=== PATIENT | female | born 1945 | race Caucasian/White ===

== ENCOUNTER 2017-04-26 14:48 | Outpatient (CLI) | payer MEDICARE ==
--- NOTE | 2017-04-27 18:31 | Mammography Report ---
DIGITAL SCREENING MAMMOGRAM: 04/26/2017 CLINICAL INDICATION: A 71-year-old with history of late childbearing for screening, history of benig n biopsy. COMPARISON: 07/2013, 04/2008, 10/2005, 09/2005. TECHNIQUE: Routine CC and MLO projections were obtained of the breasts. FINDINGS: The breasts again demonstrate scattered fibroglandular densities bilaterally. No suspicio us masses, clustered microcalcifications, or regions of architectural distortion are identified. Pos tbiopsy changes are stable. IMPRESSION: BENIGN FINDINGS. RECOMMENDATION: Routine annual screening unless otherwise clinically indicated. BI-RADS category 2, benign findings. STANDARD QUALIFYING STATEMENTS 1. This examination was reviewed with the aid of Computer-Aided Detection (CAD). 2. A negative or benign imaging report should not delay biopsy if clinically suspicious findings are present. Consider surgical consultation if warranted. More than 5% of cancers are not identified by i maging. 3. Dense breasts may obscure an underlying neoplasm. JOB #: [id number] EXT JOB #:[id number]
== END 2017-04-26 14:49 | disposition home or self-care (01) ==
LOC: DI 14:48
PROVIDERS: ATTEND Internal Medicine
DX: Z12.31 Encounter for screening mammogram for malignant neoplasm of breast (principal)
CPT/HCPCS: 77067

== ENCOUNTER 2018-01-02 12:14 | Outpatient (CLI) | payer MEDICARE ==
--- NOTE | 2018-01-02 13:50 | XRAY Report ---
THREE VIEW LEFT FOOT: 01/02/2018 CLINICAL INDICATION: Pain distal second metatarsal. FINDINGS: AP, lateral, oblique views of the left foot demonstrate no evidence of fracture or dislocation. The joint spaces are preserved. No radiopaque foreign body is appreciated in the soft tissues. IMPRESSION: NORMAL LEFT FOOT. TD: 01/02/2018 13:46
== END 2018-01-02 12:15 | disposition home or self-care (01) ==
LOC: DI 12:14
PROVIDERS: ATTEND Physician Assistant
DX: M79.672 Pain in left foot (principal)

== ENCOUNTER 2018-01-25 08:13 | Outpatient (CLI) | payer MEDICARE ==
[2018-01-25 12:52] LABS: BASOPHILS % (AUTO) 0.9 %; EOSINOPHILS # (AUTO) 0.2 10^3/uL (0.0-0.7); EOSINOPHILS % (AUTO) 4.1 %; HGB - HEMOGLOBIN 11.9 g/dL (12.0-16.0); LYMPHOCYTES # (AUTO) 1.7 10^3/uL (1.5-3.5); LYMPHOCYTES % (AUTO) 38.4 %; MEAN CORPUSCULAR HEMOGLOBIN 29.4 pg (27.0-31.0); MEAN CORPUSCULAR HGB CONC 32.8 g/dL (32.0-36.0); MEAN CORPUSCULAR VOLUME 89.6 fL (81.0-99.0); MEAN PLATELET VOLUME 8.5 fL (7.9-10.8); MONOCYTES # (AUTO) 0.3 10^3/uL (0.0-1.0); MONOCYTES % (AUTO) 7.2 %; NEUTROPHILS # (AUTO) 2.2 10^3/uL (1.5-6.6); NEUTROPHILS % (AUTO) 49.4 %; PLT - PLATELET COUNT 267 10^3/uL (130-450); RED BLOOD COUNT 4.06 10^6/uL (4.20-5.40); RED CELL DISTRIBUTION WIDTH 13.8 % (12.0-15.0); WHITE BLOOD COUNT 4.5 x10^3/uL (4.8-10.8)
[2018-01-25 13:21] LABS: ALBUMIN 3.6 g/dL (3.2-5.5); ALKALINE PHOSPHATASE 68 IU/L (42-121); ALT ALANINE AMINOTRANSFERASE 20 IU/L (10-60); AST ASPARTATE AMINOTRANSFERASE 23 IU/L (10-42); BILIRUBIN,TOTAL 0.4 mg/dL (0.2-1.0); BUN - BLOOD UREA NITROGEN 9 mg/dL (6-20); CALCIUM 8.8 mg/dL (8.5-10.3); CARBON DIOXIDE - CO2 28 mmol/L (21-32); CHLORIDE 104 mmol/L (101-111); CHOL/HDL RATIO 4.3 (<4.4); CHOLESTEROL 201 mg/dL; CREATININE 0.8 mg/dL (0.4-1.0); GFR - MDRD 70 (>89); GLUCOSE 96 mg/dL (70-100); HDL CHOLESTEROL 47 mg/dL; LDL CHOLESTEROL,CALCULATED 114 mg/dL; LDL/HDL RATIO 2.4 (<4.4); SODIUM 137 mmol/L (135-145); TOTAL PROTEIN 7.3 g/dL (6.7-8.2); VLDL CHOLESTEROL 40 mg/dL
== END 2018-01-25 08:14 | disposition home or self-care (01) ==
LOC: LAB.WCP 08:13
PROVIDERS: ATTEND Physician Assistant
DX: E66.9 Obesity, unspecified (principal); Z79.899 Other long term (current) drug therapy; E55.9 Vitamin D deficiency, unspecified; R53.83 Other fatigue
CPT/HCPCS: 36415; 80053; 80061; 82306; 83721; 84443; 85025

== ENCOUNTER 2018-02-17 11:45 | Outpatient (CLI) | payer MEDICARE ==
[2018-02-17 19:07] LABS: % IRON SATURATION 21 % (20-50); BUN - BLOOD UREA NITROGEN 14 mg/dL (6-20); CALCIUM 9.1 mg/dL (8.5-10.3); CARBON DIOXIDE - CO2 26 mmol/L (21-32); CHLORIDE 98 mmol/L (101-111); CREATININE 0.7 mg/dL (0.4-1.0); GFR - MDRD 82 (>89); GLUCOSE 89 mg/dL (70-100); IRON 84 ug/dL (28-170); SODIUM 134 mmol/L (135-145); TOTAL IRON BINDING CAPACITY 396 ug/dL (250-450); TRANSFERRIN 283 mg/dL (192-382)
[2018-02-17 19:23] LABS: FOLATE 12.27 ng/mL (5.90 - >24.8)
[2018-02-17 19:33] LABS: CRP - C-REACTIVE PROTEIN < 1.0 mg/dL (0-1.0)
[2018-02-20 19:31] LABS: ANA SCREEN POSITIVE (NEGATIVE)
== END 2018-02-17 11:46 | disposition home or self-care (01) ==
LOC: LAB.WCP 11:45
PROVIDERS: ATTEND Physician Assistant
DX: M35.1 Other overlap syndromes (principal); Z79.899 Other long term (current) drug therapy; E53.8 Deficiency of other specified B group vitamins; R53.83 Other fatigue
CPT/HCPCS: 36415; 80048; 81599; 82607; 82746; 83540; 84466; 85651; 86038; 86140

== ENCOUNTER 2018-03-17 14:44 | Outpatient (CLI) | payer MEDICARE | END 2018-03-17 14:45 | disposition home or self-care (01) | LOC: RT 14:44 | PROVIDERS: ATTEND Physician Assistant | DX: R07.89 Other chest pain (principal) | CPT/HCPCS: 93005 ==

== ENCOUNTER 2018-04-20 12:47 | Outpatient (CLI) | payer MEDICARE ==
[2018-04-20] MEDS ORDERED: REGADENOSON 0.4 MG/5 ML SYRINGE IVP ONE (14:44)
--- NOTE | 2018-04-21 00:19 | CARDIAC PROCEDURE NOTE ---
DATE OF SERVICE: 04/20/2018 Physician: ANDREW Marsh PRIMARY CARE PROVIDER: Farhana Lozada PA-C PROCEDURE: Lexiscan pharmacologic cardiac stress test. REASON FOR PROCEDURE: Atypical chest pain, nonspecific T-wave flattening. CARDIAC RISK FACTORS: Age, hypertension. PREVIOUS CARDIAC PROCEDURES: None. MEDICATIONS HELD: None. CLINICAL HISTORY: A 72-year-old woman without known coronary artery disease. She is extremely anxious. INITIAL RESTING VITAL SIGNS: Blood pressure 147/81, heart rate 72, height 64 inches, weight 147, BMI 25.32. PROCEDURE AND FINDINGS: The patient's identity and date verified. Consent signed. Pharmaceutical check. Pharmacologic stress testing was performed with Lexiscan at a dose of 0.4 mg over 10 seconds. We were unable to do the originally scheduled MPS treadmill due equipment problem. The heart rate increased to 108 beats per minute from the infusion. Blood pressure response was normal during the stress procedure. The patient developed infusion-related symptoms, which included feeling tremulous in her legs. We gave her caffeine and finally food to eat, which resolved her symptoms. The resting ECG demonstrated normal sinus rhythm with nonspecific T-wave flattening. Maximum ST segment depression with stress was less than 0.5 mm and downsloping. There was no ectopy. T-wave inversions developed during the recovery period. FINAL IMPRESSIONS 1. Negative electrocardiogram for ischemia in the setting of vasodilator stress. 2. T-wave inversions in leads II, III, aVF, V4-V6. 3. Nondiagnostic stress test for angina. 4. No ectopy. 5. No post-stress MPS. The patient firmly declined to obtain the post-stress imaging. She would not change her mind despite efforts to problem solve issues of choking due to chronic sinusitis. DISCUSSION AND RECOMMENDATIONS: Await resting myocardial perfusion report. TD: 04/20/2018 17:08 CONNIE
[2018-04-21] MEDS ORDERED: REGADENOSON 0.4 MG/5 ML SYRINGE IVP ONE (09:54)
--- NOTE | 2018-04-21 12:12 | Nuclear Medicine Report ---
Procedure Date: 04/21/2018 Accession Number: [id number] / [id number] Procedure: NM - Myocardial Perfusion STR/RST CPT Code: FULL RESULT: EXAM: SINGLE-ISOTOPE PHARMACOLOGICAL STRESS TEST WITH REGADENOSON. SINGLE-ISOTOPE AND ONE-DAY REST ONLY MYOCARDIAL PERFUSION SCAN WITH TOMOGRAPHIC IMAGING EXAM DATE: 04/20/2018 01:56 PM. CLINICAL HISTORY: Chest pain COMPARISON: None available. TECHNIQUE: After the intravenous administration of 10.5 mCi of Tc-99m sestamibi, a rest myocardial perfusion scan was done with tomography. Motion correction was applied when appropriate. After an appropriate delay, pharmacological stress was performed with the infusion of 0.4 mg regadenoson per protocol. According to protocol, 42.3 mCi of Tc-99m sestamibi was injected for stress myocardial perfusion scan. The patient declined SPECT imaging. FINDINGS: No significant focal perfusion defect on rest images. There appears to be some septal thinning. Stress imaging was not performed. IMPRESSION: 1. No significant focal perfusion defect on rest images. 2. The patient declined image acquisition for the stress portion of the exam. RADIA
== END 2018-04-20 12:48 | disposition home or self-care (01) ==
LOC: DI 12:47
PROVIDERS: ATTEND Physician Assistant
DX: R07.89 Other chest pain (principal); R94.31 Abnormal electrocardiogram [ECG] [EKG]
CPT/HCPCS: 78452; 93017; A9500

== ENCOUNTER 2018-05-19 10:47 | Emergency (ER) | payer MEDICARE ==
--- NOTE | 2018-05-19 11:59 | ED Physician Documentation ---
PD HPI DYSPNEA - Stated complaint Stated Complaint: SOA - Chief complaint Chief Complaint: Resp - History obtained from History obtained from: Patient, Family - History of Present Illness Timing - onset: Yesterday Timing - onset during: Rest Timing - duration: Days (1) Timing - details: Gradual onset, Still present Inciting event(s): Immobilization/travel Improved by: Rest Worsened by: Exertion Associated symptoms: Anxiety Similar symptoms before: Has not had sx before Recently seen: Not recently seen - Additional information Additional information: 72 y/o female with a 2 day history of shortness of breath and fatigue. She reports that she was on a long train trip to last week and she returned 3 days ago. She denies leg swelling or significant confinement. She indicates they traveled in a sleeper compartment and walked a lot on their trip to She noted dyspnea yesterday and this caused anxiety today and the dyspnea worsened. Review of Systems Constitutional: reports: Fatigue. denies: Fever, Chills, Myalgias, Sweats Eyes: denies: Decreased vision Ears: denies: Ear pain Nose: reports: Congestion (chronic) Throat: denies: Sore throat Cardiac: denies: Chest pain / pressure, Palpitations Respiratory: reports: Dyspnea. denies: Cough, Wheezing GI: denies: Abdominal Pain, Nausea, Vomiting : denies: Dysuria, Frequency Skin: denies: Rash, Lesions Musculoskeletal: denies: Neck pain, Back pain, Extremity pain Neurologic: reports: Generalized weakness. 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 HEENT: Tonsil/Adenoidectomy - Present Medications Home Medications: Ambulatory Orders Medication Instructions Recorded Confirmed Losartan Potassium 100 mg PO DAILY 09/08/14 04/22/15 Omeprazole 20 mg PO DAILY 09/08/14 04/22/15 - Allergies Allergies/Adverse Reactions: Allergies Allergy/AdvReac Type Severity Reaction Status Date / Time cefazolin sodium * Allergy Unknown Verified 09/08/14 18:04 [From Ancef] codeine Allergy Unknown Verified 09/08/14 18:03 corn Allergy Unknown Verified 09/08/14 18:03 compoud H Allergy Unknown Uncoded 09/08/14 18:04 - Social History Does the pt smoke?: No Smoking Status: Never smoker Does the pt drink ETOH?: No Does the pt have substance abuse?: No - POLST Patient has POLST: No PD ED PE NORMAL - Vitals Vital signs reviewed: Yes - General General: Alert and oriented X 3, Well developed/nourished - HEENT HEENT: Atraumatic, PERRL, EOMI, Other (dry mucous membranes ) - Neck Neck: Supple, no meningeal sign, No bony TTP, No JVD - Cardiac Cardiac: RRR, No murmur - Respiratory Respiratory: Clear bilaterally, Other - Abdomen Abdomen: Soft, Non tender - Back Back: No CVA TTP, No spinal TTP - Derm Derm: Normal color, Warm and dry, No rash - Extremities Extremities: No deformity, No edema - Neuro Neuro: Alert and oriented X 3, production sorter 2-12 intact, No motor deficit, No sensory deficit, Normal speech Eye Opening: Spontaneous Motor: Obeys Commands Verbal: Oriented GCS Score: 15 - Psych Psych: Normal mood, Normal affect Results - Vitals Vitals: Vital Signs - 24 hr 05/19/18 05/19/18 10:56 11:20 Temperature 36.3 C L Heart Rate 76 74 Respiratory 22 18 Rate Blood Pressure 132/76 H 134/72 H O2 Saturation 100 100 Oxygen O2 Source Room air - EKG (time done) 1055 Rate: Rate (enter#) (74) Rhythm: NSR Ischemia: Other (flat T's ) Compare to prior EKG: Old EKG unavailable Computer interpretation: Agree with computer PD MEDICAL DECISION MAKING - ED course Complexity details: reviewed results, re-evaluated patient, considered differential, d/w patient, d/w family ED course: 72 y/o female with dyspnea has negative diagnostics including CT angio of the chest. She is found to be dehydrated on interrogation of the IVC and with elevated BUN. She is hypokalemic as well. She is anxious on arrival and is improved with IV ativan. She is given IV saline and potassium orally. - Sepsis Event Vital Signs: Vital Signs - 24 hr 05/19/18 05/19/18 10:56 11:20 Temperature 36.3 C L Heart Rate 76 74 Respiratory 22 18 Rate Blood Pressure 132/76 H 134/72 H O2 Saturation 100 100 Oxygen O2 Source Room air Departure - Departure Disposition: 01 Home, Self Care Clinical Impression: Dehydration, Hypokalemia Condition: Stable Instructions: ED Dehydration, ED Potassium Deficiency Follow-Up: Farhana Lozada PA [Primary Care Provider] -
[2018-05-19 12:10] LABS: BASOPHILS # (AUTO) 0.1 10^3/uL (0.0-0.1); BASOPHILS % (AUTO) 0.6 %; EOSINOPHILS # (AUTO) 0.3 10^3/uL (0.0-0.7); EOSINOPHILS % (AUTO) 3.3 %; HGB - HEMOGLOBIN 13.3 g/dL (12.0-16.0); LYMPHOCYTES # (AUTO) 2.6 10^3/uL (1.5-3.5); LYMPHOCYTES % (AUTO) 27.4 %; MEAN CORPUSCULAR HEMOGLOBIN 30.3 pg (27.0-31.0); MEAN CORPUSCULAR HGB CONC 34.4 g/dL (32.0-36.0); MEAN PLATELET VOLUME 7.3 fL (7.9-10.8); MONOCYTES # (AUTO) 0.8 10^3/uL (0.0-1.0); MONOCYTES % (AUTO) 8.6 %; NEUTROPHILS # (AUTO) 5.7 10^3/uL (1.5-6.6); NEUTROPHILS % (AUTO) 60.1 %; PLT - PLATELET COUNT 312 10^3/uL (130-450); RED BLOOD COUNT 4.39 10^6/uL (4.20-5.40); RED CELL DISTRIBUTION WIDTH 14.3 % (12.0-15.0); WHITE BLOOD COUNT 9.5 x10^3/uL (4.8-10.8)
[2018-05-19 12:11] LABS: BILIRUBIN,URINE NEGATIVE (NEGATIVE); GLUCOSE, URINE (UA) NEGATIVE (NEGATIVE); KETONES,URINE (UA) NEGATIVE (NEGATIVE); LEUKOCYTE ESTERASE, URINE TRACE (NEGATIVE); NITRITE,URINE NEGATIVE (NEGATIVE); OCCULT BLOOD,URINE TRACE-INTA (NEGATIVE); PH,URINE 7.5 PH (5.0-7.5); PROTEIN,URINE NEGATIVE (NEGATIVE); UROBILINOGEN,URINE 0.2 (NORMAL) E.U./dL (NORMAL)
[2018-05-19 12:12] LABS: CLARITY,URINE CLEAR (CLEAR)
[2018-05-19 12:17] LABS: RBC,URINE 0-5 /HPF (0-5); SQUAMOUS EPITHELIAL CELL,UR RARE Squamous (<= Few)
[2018-05-19 12:18] LABS: BACTERIA,URINE Rare /HPF (None Seen)
[2018-05-19 12:24] LABS: ALBUMIN 4.9 g/dL (3.2-5.5); ALBUMIN/GLOBULIN RATIO 1.4 (1.0-2.2); CALCIUM 9.2 mg/dL (8.5-10.3); CREATININE 0.9 mg/dL (0.4-1.0); TOTAL PROTEIN 8.5 g/dL (6.7-8.2)
[2018-05-19] MEDS ORDERED: POTASSIUM BICARB 25 MEQ TABLET PO STA (13:33)
[2018-05-19] MEDS ORDERED: SODIUM CHLORIDE 0.9% 1,000 ML IV ONE (13:33)
--- NOTE | 2018-05-19 13:45 | CT Report ---
Reason: soa after long train trip Procedure Date: 05/19/2018 Accession Number: [id number] / [id number] Procedure: CT - Chest Angio (PE) CPT Code: FULL RESULT: EXAM: CT ANGIOGRAM CHEST EXAM DATE: 05/19/2018 01:29 PM. CLINICAL HISTORY: Shortness of breath. COMPARISON: CHEST ANGIO 05/19/2018 1:21 PM. TECHNIQUE: Routine helical imaging was performed through the chest in the pulmonary arterial phase. IV Contrast: CE. Reconstructions: Coronal 3-D MIP reconstructions.Sagittal and coronal. In accordance with CT protocol optimization, one or more of the following dose reduction techniques were utilized for this exam: automated exposure control, adjustment of mA and/or KV based on patient size, or use of iterative reconstructive technique. FINDINGS: Pulmonary Arteries: Diagnostic quality: Adequate through the segmental arteries. No evidence for acute or chronic pulmonary emboli. RV/LV is within normal limits. There is no interventricular septal bowing. There is no reflux of contrast material in the IVC. Lungs/Pleura: Tiny 2-3 mm pulmonary densities are seen in the lingula region, otherwise, no consolidation, nodules, or edema. No effusions or pneumothorax. Mediastinum: Normal. No cardiac enlargement or adenopathy. Thoracic Aorta: Unremarkable. Upper Abdomen: Cholecystectomy changes are seen in the right upper quadrant region. Other: None. IMPRESSION: 1. No pulmonary embolism or other acute cardiopulmonary abnormality. 2. Tiny lingula nodules measuring 2-3 mm, likely benign. Follow-up CT in one year could be considered if patient is high risk for lung cancer. RADIA
[2018-05-19 15:13] VITALS: BP 118/74
[2018-05-22] MEDS ORDERED: IOPAMIDOL-300 100 ML VIAL IVP ONE (13:26)
== END 2018-05-19 15:14 | disposition home or self-care (01) ==
LOC: ED 10:47
DX: E86.0 Dehydration (principal); E87.6 Hypokalemia; I10 Essential (primary) hypertension
CPT/HCPCS: 36415; 71275; 80053; 81001; 83690; 83880; 84484; 85025; 87077; 87086; 93005; 96360; 99284; A9270; 81003

== ENCOUNTER 2018-05-24 09:02 | Outpatient (CLI) | payer MEDICARE ==
[2018-05-24 13:16] LABS: CALCIUM 8.8 mg/dL (8.5-10.3); CREATININE 0.8 mg/dL (0.4-1.0)
== END 2018-05-24 09:03 ==
LOC: LAB.WCP 09:02
PROVIDERS: ATTEND Physician Assistant
DX: E87.6 Hypokalemia (principal)
CPT/HCPCS: 36415; 80048

== ENCOUNTER 2018-06-13 10:15 | Outpatient (CLI) | payer MEDICARE ==
[2018-06-13 12:52] LABS: CREATININE 0.8 mg/dL (0.4-1.0)
== END 2018-06-13 10:16 | disposition home or self-care (01) ==
LOC: LAB.WCP 10:15
PROVIDERS: ATTEND Physician Assistant
DX: E87.6 Hypokalemia (principal)
CPT/HCPCS: 36415; 80048

== ENCOUNTER 2018-09-21 14:40 | Outpatient (CLI) | payer MEDICARE ==
[2018-09-21 18:53] LABS: BASOPHILS % (AUTO) 0.7 %; EOSINOPHILS # (AUTO) 0.1 10^3/uL (0.0-0.7); EOSINOPHILS % (AUTO) 3.1 %; HGB - HEMOGLOBIN 11.1 g/dL (12.0-16.0); LYMPHOCYTES # (AUTO) 1.4 10^3/uL (1.5-3.5); LYMPHOCYTES % (AUTO) 36.3 %; MEAN CORPUSCULAR HEMOGLOBIN 29.3 pg (27.0-31.0); MEAN CORPUSCULAR HGB CONC 32.4 g/dL (32.0-36.0); MEAN CORPUSCULAR VOLUME 90.6 fL (81.0-99.0); MONOCYTES # (AUTO) 0.4 10^3/uL (0.0-1.0); MONOCYTES % (AUTO) 10.5 %; NEUTROPHILS # (AUTO) 1.9 10^3/uL (1.5-6.6); NEUTROPHILS % (AUTO) 49.4 %; PLT - PLATELET COUNT 275 10^3/uL (130-450); RED CELL DISTRIBUTION WIDTH 13.9 % (12.0-15.0); WHITE BLOOD COUNT 3.9 x10^3/uL (4.8-10.8)
[2018-09-21 19:11] LABS: ALBUMIN/GLOBULIN RATIO 1.3 (1.0-2.2); BILIRUBIN,TOTAL 0.6 mg/dL (0.2-1.0); CALCIUM 8.8 mg/dL (8.5-10.3); CREATININE 0.9 mg/dL (0.4-1.0)
== END 2018-09-21 14:41 | disposition home or self-care (01) ==
LOC: LAB.WCP 14:40
PROVIDERS: ATTEND Physician Assistant
DX: E87.6 Hypokalemia (principal); I47.1 Supraventricular tachycardia
CPT/HCPCS: 36415; 80053; 84443; 85025

== ENCOUNTER 2018-09-27 15:49 | Outpatient (CLI) | payer MEDICARE ==
[2018-09-27 19:30] LABS: FOLATE 15.04 ng/mL (5.90 - >24.8)
[2018-09-27 19:37] LABS: % IRON SATURATION 8 % (20-50); IRON 29 ug/dL (28-170); TOTAL IRON BINDING CAPACITY 372 ug/dL (250-450); TRANSFERRIN 266 mg/dL (192-382)
== END 2018-09-27 23:59 | disposition home or self-care (01) ==
LOC: LAB.WCP 15:49
PROVIDERS: ATTEND Physician Assistant
DX: D50.9 Iron deficiency anemia, unspecified (principal)
CPT/HCPCS: 36415; 82607; 82746; 83540; 84466

== ENCOUNTER 2018-10-23 14:53 | Outpatient (CLI) | payer MEDICARE ==
--- NOTE | 2018-10-24 09:37 | CT Report ---
Reason: SINUSITIS CHRONIC Procedure Date: 10/23/2018 Accession Number: [id number] / [id number] Procedure: CT - Sinuses CPT Code: FULL RESULT: EXAM: CT SINUS EXAM DATE: 10/23/2018 03:19 PM. HISTORY: 72-year-old female SINUSITIS CHRONIC. COMPARISONS: CT sinuses 12/25/2015 TECHNIQUE: Routine multi-axial CT imaging performed through the sinuses. Iodinated IV contrast: None. Reconstructions: Multiplanar reformats. In accordance with CT protocol optimization, one or more of the following dose reduction techniques were utilized for this exam: automated exposure control, adjustment of mA and/or KV based on patient size, or use of iterative reconstructive technique. FINDINGS: RIGHT Frontal: Normal. Ethmoid: Minimal mucosal thickening. Maxillary: Normal. Sphenoid: Normal. Drainage Pathways: The frontal recess, ostiomeatal complex and sphenoethmoidal recess are patent and normal. LEFT Frontal: Normal. Ethmoid: Minimal mucosal thickening. Maxillary: Small mucus retention cyst/polyp Sphenoid: Normal. Drainage Pathways: The frontal recess, ostiomeatal complex and sphenoethmoidal recess are patent and normal. Nasal Cavity: The left inferior turbinate is hyperplastic (series 5 image 11). There is rightward deviation of the nasal septum with a rightward directed bony spur (series 5 image 14) Osseous Structures: Unremarkable. Orbits: Unremarkable. Other: None. IMPRESSION: 1. No evidence of acute sinusitis. Minimal mucosal thickening bilateral ethmoid air cells. Small mucus retention cyst/polyp left maxillary sinus. Remaining paranasal sinuses are clear. The drainage pathways bilaterally are patent. 2. The left inferior turbinate is hyperplastic (series 5 image 11). There is rightward deviation of the nasal septum with a rightward directed bony spur (series 5 image 14) RADIA
== END 2018-10-23 14:54 | disposition home or self-care (01) ==
LOC: DI 14:53
PROVIDERS: ATTEND Physician Assistant Medical
DX: J32.9 Chronic sinusitis, unspecified (principal); J34.2 Deviated nasal septum
CPT/HCPCS: 70486

== ENCOUNTER 2019-03-28 12:43 | Emergency (ER) | payer MEDICARE ==
[2019-03-28] MEDS ORDERED: ADENOSINE 6 MG/2 ML VIAL IVP STA (13:03)
--- NOTE | 2019-03-28 13:07 | ED Physician Documentation ---
PD HPI CHEST PAIN - Stated complaint Stated Complaint: RAPID HEART RATE - Chief complaint Chief Complaint: Cardiac - History obtained from History obtained from: Patient, Family - History of Present Illness Timing - onset: Today (73-year-old woman with recurrent SVT status post what sounds like a thorough work-up in the past; Her nursing admin is Dr. Roberson at [facility]. She developed rapid palpitations and mild shortness of breath at noon today similar to her episodes of SVT. She tried Valsalva at home without relief.) Review of Systems Constitutional: denies: Fever, Chills Cardiac: reports: Palpitations. denies: Chest pain / pressure Respiratory: reports: Dyspnea. 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 HEENT: Tonsil/Adenoidectomy - Present Medications Home Medications: Ambulatory Orders Medication Instructions Recorded Confirmed Losartan Potassium 100 mg PO DAILY 09/08/14 04/22/15 Omeprazole 20 mg PO DAILY 09/08/14 04/22/15 - Allergies Allergies/Adverse Reactions: Allergies Allergy/AdvReac Type Severity Reaction Status Date / Time cefazolin sodium * Allergy Unknown Verified 09/08/14 18:04 [From Anc] codeine Allergy Unknown Verified 09/08/14 18:03 corn Allergy Unknown Verified 09/08/14 18:03 compoud H Allergy Unknown Uncoded 09/08/14 18:04 - Social History Does the pt smoke?: No Smoking Status: Never smoker Does the pt drink ETOH?: No Does the pt have substance abuse?: No - POLST Patient has POLST: No PD ED PE NORMAL - Vitals Vital signs reviewed: Yes - General General: Alert and oriented X 3, No acute distress - HEENT HEENT: PERRL, EOMI - Neck Neck: Supple, no meningeal sign, No bony TTP - Cardiac Cardiac: Other (Rapid and regular without murmur) - Respiratory Respiratory: No respiratory distress, Clear bilaterally - Abdomen Abdomen: Non tender - Extremities Extremities: No edema, No calf tenderness / cord - Neuro Neuro: Alert and oriented X 3, Normal speech Results - Vitals Vitals: Vital Signs - 24 hr 03/28/19 03/28/19 03/28/19 12:46 13:04 13:14 Heart Rate 172 H 156 H 74 Respiratory 20 24 21 Rate Blood Pressure 147/100 H 157/110 H 180/77 H O2 Saturation 98 99 100 03/28/19 13:31 Heart Rate 59 L Respiratory 12 Rate Blood Pressure 160/75 H O2 Saturation 99 Oxygen O2 Source Room air - EKG (time done) 1253 Rate: Rate (enter#) (162) Rhythm: SVT [place]: Normal Ischemia: Non specific changes (Mild lateral ST depression, probably rate related) Computer interpretation: Agree with computer 1321 Rate: Rate (enter#) (63) Rhythm: NSR [place]: Normal Intervals: Normal [place] QRS: Normal Ischemia: Normal ST segments Computer interpretation: Agree with computer - Labs Labs: Laboratory Tests 03/28/19 03/28/19 03/28/19 13:16 13:16 13:16 WBC 4.8 RBC 4.04 L Hgb 12.2 Hct 37.3 MCV 92.3 MCH 30.2 MCHC 32.7 RDW 13.4 Plt Count 214 MPV 9.7 Neut # (Auto) 2.3 Lymph # (Auto) 1.8 [place] # (Auto) 0.5 Eos # (Auto) 0.1 Baso # (Auto) 0.0 Absolute Nucleated RBC 0.00 Nucleated RBC % 0.0 Sodium 140 Potassium 3.6 Chloride 106 Carbon Dioxide 21 Anion Gap 13.0 BUN 16 Creatinine 0.9 Estimated GFR (MDRD) 61 L Glucose 110 H Calcium 9.3 Total Bilirubin 0.8 AST 24 ALT 22 Alkaline Phosphatase 65 Total Protein 7.6 Albumin 4.2 Globulin 3.4 Albumin/Globulin Ratio 1.2 Lipase 48 TSH 1.44 PD MEDICAL DECISION MAKING - ED course ED course: Modified Valsalva was trialed on initial evaluation without conversion to sinus rhythm, and IV was placed and she will be given adenosine. After the administration of 6 mg of adenosine IVP she converted to normal sinus rhythm. Departure - Departure Disposition: 01 Home, Self Care Clinical Impression: SVT (supraventricular tachycardia) Condition: Good Record reviewed to determine appropriate education?: Yes Instructions: ED Tachycardia Pat PSVT Comments: Continue current medications and diet, follow-up with your nursing admin for fur ther evaluation and treatment. Return if worse.
[2019-03-28 13:22] LABS: BASOPHILS % (AUTO) 0.6 %; EOSINOPHILS # (AUTO) 0.1 10^3/uL (0.0-0.7); EOSINOPHILS % (AUTO) 2.7 %; HGB - HEMOGLOBIN 12.2 g/dL (12.0-16.0); LYMPHOCYTES # (AUTO) 1.8 10^3/uL (1.5-3.5); LYMPHOCYTES % (AUTO) 38.3 %; MEAN CORPUSCULAR HEMOGLOBIN 30.2 pg (27.0-31.0); MEAN CORPUSCULAR HGB CONC 32.7 g/dL (32.0-36.0); MEAN CORPUSCULAR VOLUME 92.3 fL (81.0-99.0); MEAN PLATELET VOLUME 9.7 fL (7.9-10.8); MONOCYTES # (AUTO) 0.5 10^3/uL (0.0-1.0); MONOCYTES % (AUTO) 10.5 %; NEUTROPHILS # (AUTO) 2.3 10^3/uL (1.5-6.6); NEUTROPHILS % (AUTO) 47.7 %; PLT - PLATELET COUNT 214 10^3/uL (130-450); RED BLOOD COUNT 4.04 10^6/uL (4.20-5.40); RED CELL DISTRIBUTION WIDTH 13.4 % (12.0-15.0); WHITE BLOOD COUNT 4.8 x10^3/uL (4.8-10.8)
[2019-03-28 13:36] LABS: ALBUMIN 4.2 g/dL (3.2-5.5); ALBUMIN/GLOBULIN RATIO 1.2 (1.0-2.2); BILIRUBIN,TOTAL 0.8 mg/dL (0.2-1.0); CALCIUM 9.3 mg/dL (8.5-10.3); CREATININE 0.9 mg/dL (0.4-1.0); TOTAL PROTEIN 7.6 g/dL (6.7-8.2)
[2019-03-28 14:09] VITALS: BP 147/117
== END 2019-03-28 14:06 | disposition home or self-care (01) ==
LOC: ED 12:43
DX: I47.1 Supraventricular tachycardia (principal); I10 Essential (primary) hypertension
CPT/HCPCS: 36415; 83690; 93005; 99284; J0153; 80053; 84443; 85025

== ENCOUNTER 2020-08-05 15:31 | Outpatient (CLI) | payer MEDICARE ==
--- NOTE | 2020-08-05 16:04 | XRAY Report ---
PROCEDURE: Lumbar Spine 2 View INDICATIONS: LUMBAR RADICULOPATHY TECHNIQUE: 2 views of the lumbar spine were acquired. COMPARISON: None. FINDINGS: Bones: 5 vth-ure-brtxyby vertebrae are present. There is mild diffuse rightward curvature of the ivette mbar spine. Mild grade 1 anterolisthesis of L4 on L5 and L5 on S1. Mild multilevel endplate osteophyt e formation and facet hypertrophy.. No vertebral body compression fractures. No suspicious bony les ions. Soft tissues: Overlying bowel gas pattern is normal. No suspicious soft tissue calcifications. IMPRESSION: Multilevel degenerative disc and facet disease. No acute fracture. No osseous lesion. If symptoms and/or clinical suspicion for pathology continue, further assessment with repeat plain film s, or advanced imaging (e.g., CT, MRI, or bone scan) is recommended for further assessment. Reviewed by: Lukas Chavarria MD on 08/05/2020 4:03 PM PST Approved by: Lukas Chavarria MD on 08/05/2020 4:03 PM PST Station ID: [id number]
== END 2020-08-05 23:59 | disposition home or self-care (01) ==
LOC: DI.WCP 15:31
PROVIDERS: ATTEND Physician Assistant Medical
DX: M43.16 Spondylolisthesis, lumbar region (principal); M43.17 Spondylolisthesis, lumbosacral region; M51.36 Other intervertebral disc degeneration, lumbar region; M47.816 Spondylosis without myelopathy or radiculopathy, lumbar region

== ENCOUNTER 2020-12-05 08:00 | Outpatient (CLI) | payer MEDICARE ==
[2020-12-05 13:04] LABS: BASOPHILS # (AUTO) 0.1 10^3/uL (0.0-0.1); BASOPHILS % (AUTO) 1.2 %; EOSINOPHILS # (AUTO) 0.4 10^3/uL (0.0-0.7); EOSINOPHILS % (AUTO) 7.5 %; HCT - HEMATOCRIT 37.7 % (37.0-47.0); HGB - HEMOGLOBIN 11.6 g/dL (12.0-16.0); LYMPHOCYTES # (AUTO) 1.8 10^3/uL (1.5-3.5); MEAN CORPUSCULAR HEMOGLOBIN 29.7 pg (27.0-31.0); MEAN CORPUSCULAR HGB CONC 30.8 g/dL (32.0-36.0); MEAN CORPUSCULAR VOLUME 96.4 fL (81.0-99.0); MEAN PLATELET VOLUME 10.9 fL (7.9-10.8); MONOCYTES # (AUTO) 0.5 10^3/uL (0.0-1.0); MONOCYTES % (AUTO) 10.1 %; NEUTROPHILS # (AUTO) 2.2 10^3/uL (1.5-6.6); PLT - PLATELET COUNT 222 10^3/uL (130-450); RED BLOOD COUNT 3.91 10^6/uL (4.20-5.40); RED CELL DISTRIBUTION WIDTH 13.9 % (12.0-15.0); WHITE BLOOD COUNT 4.9 x10^3/uL (4.8-10.8)
[2020-12-05 13:27] LABS: ALBUMIN 4.3 g/dL (3.2-5.5); ALBUMIN/GLOBULIN RATIO 1.3 (1.0-2.2); ALKALINE PHOSPHATASE 76 IU/L (42-121); ALT ALANINE AMINOTRANSFERASE 19 IU/L (10-60); AST ASPARTATE AMINOTRANSFERASE 22 IU/L (10-42); BILIRUBIN,TOTAL 0.6 mg/dL (0.2-1.0); BUN - BLOOD UREA NITROGEN 18 mg/dL (6-20); CALCIUM 9.1 mg/dL (8.5-10.3); CARBON DIOXIDE - CO2 27 mmol/L (21-32); CHLORIDE 109 mmol/L (101-111); CHOL/HDL RATIO 3.5 (<4.4); CHOLESTEROL 177 mg/dL; CREATININE 0.9 mg/dL (0.4-1.0); GFR - MDRD 61 (>89); GLUCOSE 93 mg/dL (70-100); HDL CHOLESTEROL 51 mg/dL; LDL CHOLESTEROL,CALCULATED 99 mg/dL; LDL/HDL RATIO 1.9 (<4.4); SODIUM 143 mmol/L (135-145); TOTAL PROTEIN 7.5 g/dL (6.7-8.2); TRIGLYCERIDES 135 mg/dL; VLDL CHOLESTEROL 27 mg/dL
== END 2020-12-05 23:59 | disposition home or self-care (01) ==
LOC: LAB.WCP 08:00
PROVIDERS: ATTEND Physician Assistant Medical
DX: I10 Essential (primary) hypertension (principal); E55.9 Vitamin D deficiency, unspecified; D64.9 Anemia, unspecified
CPT/HCPCS: 36415; 80053; 80061; 82306; 82607; 83721; 85025

== ENCOUNTER 2020-12-16 13:41 | Outpatient (CLI) | payer MEDICARE ==
--- NOTE | 2020-12-16 16:54 | DEXA Report ---
PROCEDURE: Dexa Spine and/or Hip INDICATIONS: POSTMENOPAUSAL TECHNIQUE: Dual energy x-ray absorptiometry (DXA) was performed on a [employer] System. Regions measur ed are the AP Spine, femoral neck, and if needed forearm. COMPARISON: None. FINDINGS: Lumbar Spine: Bone Mineral Density 0.907 g/cm/cm,T score -2.3, severe osteopenia/borderline osteoporosis Left Hip: Bone Mineral Density 0.879 g/cm/cm,T score -1.0, borderline osteopenia Left Femoral Neck: Bone Mineral Density 0.863 g/cm/cm, T score -1.3, mild osteopenia (T score greater or equal to -1.0: NORMAL) (T score from -1.1 to -2.4: OSTEOPENIA) (T score less than or equal to -2.5 to: OSTEOPOROSIS) Impression: Osteopenia and osteoporosis most severe in the lumbar spine. Patients with diagnosis of osteoporosis or osteopenia should have regular bone mineral density assess ment. For those eligible for Medicare, routine testing is allowed once every 2 years. Testing frequ ency can be increased for patients who have rapidly progressing disease or for those who are receivin g medical therapy to restore bone mass. Reviewed by: Octavia Alvarado MD on 12/16/2020 4:52 PM PDT Approved by: Octavia Alvarado MD on 12/16/2020 4:52 PM PDT Station ID: [id number]
== END 2020-12-16 13:42 | disposition home or self-care (01) ==
LOC: DI 13:41
PROVIDERS: ATTEND Physician Assistant Medical
DX: M81.0 Age-related osteoporosis without current pathological fracture (principal); Z78.0 Asymptomatic menopausal state

== ENCOUNTER 2020-12-16 14:08 | Outpatient (CLI) | payer MEDICARE ==
--- NOTE | 2020-12-17 12:16 | Mammography Report ---
BILATERAL DIGITAL SCREENING MAMMOGRAM 3D/2D: 12/16/2020 CLINICAL: Routine screening. Comparison is made to exams dated: 04/26/2017 mammogram and 07/25/2013 mammogram - [facility]. There are scattered fibroglandular elements in both breasts. No significant masses, calcifications, or other findings are seen in either breast. There has been no significant interval change. IMPRESSION: NEGATIVE There is no mammographic evidence of malignancy. A 1 year screening mammogram is recommended. This exam was interpreted at Station ID: [id number]. NOTE: For mammograms, a report in lay terms will be sent to the patient. Approximately 15% of breast malignancies will not be visualized mammographically. In the management of a palpable breast mass, a negative mammogram must not discourage biopsy of a clinically suspicious lesion. Electronically Signed By: Alf Geiger M.D. ddp/penrad:12/16/2020 14:42:43 ACR BI-RADS Category 1: Negative 3341F PARENCHYMAL PATTERN: (A) - The breast(s) demonstrate(s) scattered fibroglandular densities. BI-RADS CATEGORY: (1) - 1 RECOMMENDATION: (ANNUAL) - Recommend routine annual screening mammography. [id number] 1 year screening LATERALITY: (B)
== END 2020-12-16 14:09 | disposition home or self-care (01) ==
LOC: DI 14:08
DX: Z12.31 Encounter for screening mammogram for malignant neoplasm of breast (principal)

== ENCOUNTER 2021-05-01 11:48 | Outpatient (CLI) | payer MEDICARE ==
--- NOTE | 2021-05-01 14:36 | XRAY Report ---
PROCEDURE: Knee 3 View LT INDICATIONS: LEFT KNEE PAIN TECHNIQUE: 5 views of the left knee(s) were acquired. COMPARISON: None. FINDINGS: Bones: No fractures or dislocations. Moderate tricompartmental osteoarthritis is seen more prominent in medial femoral tibial compartment. No suspicious bony lesions. Soft tissues: No joint effusion. No suspicious soft tissue calcifications. IMPRESSION: Moderate tricompartmental osteoarthritis in left knee most prominent in medial femoral t ibial compartment. No fracture or dislocation. No significant joint effusion. Reviewed by: Celestino Pratt MD on 05/01/2021 2:34 PM PDT Approved by: Celestino Pratt MD on 05/01/2021 2:34 PM PDT Station ID: [id number]
== END 2021-05-01 11:49 | disposition home or self-care (01) ==
LOC: DI.N 11:48
PROVIDERS: ATTEND Physician Assistant Medical
DX: M17.12 Unilateral primary osteoarthritis, left knee (principal)

== ENCOUNTER 2021-06-12 08:04 | Outpatient (CLI) | payer MEDICARE ==
[2021-06-12 12:30] LABS: BASOPHILS # (AUTO) 0.1 10^3/uL (0.0-0.1); BASOPHILS % (AUTO) 0.8 %; EOSINOPHILS # (AUTO) 0.5 10^3/uL (0.0-0.7); EOSINOPHILS % (AUTO) 8.5 %; HCT - HEMATOCRIT 36.9 % (37.0-47.0); HGB - HEMOGLOBIN 11.4 g/dL (12.0-16.0); LYMPHOCYTES # (AUTO) 2.5 10^3/uL (1.5-3.5); LYMPHOCYTES % (AUTO) 41.7 %; MEAN CORPUSCULAR HEMOGLOBIN 29.8 pg (27.0-31.0); MEAN CORPUSCULAR HGB CONC 30.9 g/dL (32.0-36.0); MEAN CORPUSCULAR VOLUME 96.3 fL (81.0-99.0); MEAN PLATELET VOLUME 10.3 fL (7.9-10.8); MONOCYTES # (AUTO) 0.6 10^3/uL (0.0-1.0); MONOCYTES % (AUTO) 9.7 %; NEUTROPHILS # (AUTO) 2.3 10^3/uL (1.5-6.6); PLT - PLATELET COUNT 261 10^3/uL (130-450); RED BLOOD COUNT 3.83 10^6/uL (4.20-5.40); RED CELL DISTRIBUTION WIDTH 14.5 % (12.0-15.0); WHITE BLOOD COUNT 5.9 x10^3/uL (4.8-10.8)
[2021-06-12 12:40] LABS: ALBUMIN 4.2 g/dL (3.2-5.5); ALBUMIN/GLOBULIN RATIO 1.4 (1.0-2.2); ALKALINE PHOSPHATASE 77 IU/L (42-121); ALT ALANINE AMINOTRANSFERASE 24 IU/L (10-60); AST ASPARTATE AMINOTRANSFERASE 24 IU/L (10-42); BILIRUBIN,TOTAL 0.6 mg/dL (0.2-1.0); BUN - BLOOD UREA NITROGEN 16 mg/dL (6-20); CALCIUM 9.3 mg/dL (8.5-10.3); CARBON DIOXIDE - CO2 28 mmol/L (21-32); CHLORIDE 106 mmol/L (101-111); CHOL/HDL RATIO 4.4 (<4.4); CHOLESTEROL 198 mg/dL; CREATININE 0.9 mg/dL (0.4-1.0); GFR - MDRD 61 (>89); GLUCOSE 95 mg/dL (70-100); HDL CHOLESTEROL 45 mg/dL; LDL CHOLESTEROL,CALCULATED 104 mg/dL; LDL/HDL RATIO 2.3 (<4.4); SODIUM 142 mmol/L (135-145); TOTAL PROTEIN 7.3 g/dL (6.7-8.2); TRIGLYCERIDES 244 mg/dL; VLDL CHOLESTEROL 49 mg/dL
[2021-06-12 12:54] LABS: THYROID STIMULATING HORMONE 3.88 uIU/mL (0.34-5.60)
== END 2021-06-12 23:59 | disposition home or self-care (01) ==
LOC: LAB.WCP 08:04
PROVIDERS: ATTEND Physician Assistant Medical
DX: R73.03 Prediabetes (principal); I10 Essential (primary) hypertension; E53.8 Deficiency of other specified B group vitamins; I47.1 Supraventricular tachycardia; D64.9 Anemia, unspecified
CPT/HCPCS: 36415; 80053; 80061; 82607; 83721; 84443; 85025

== ENCOUNTER 2021-10-12 14:30 | Outpatient (CLI) | payer MEDICARE | END 2021-10-12 23:59 | disposition home or self-care (01) | LOC: LAB 14:30 | PROVIDERS: ATTEND Physician Assistant | DX: R53.83 Other fatigue (principal); R53.81 Other malaise; Z20.822 Contact with and (suspected) exposure to COVID-19 ==

== ENCOUNTER 2021-11-20 07:40 | Outpatient (CLI) | payer MEDICARE ==
[2021-11-20 12:13] LABS: BASOPHILS # (AUTO) 0.1 10^3/uL (0.0-0.1); EOSINOPHILS # (AUTO) 0.4 10^3/uL (0.0-0.7); EOSINOPHILS % (AUTO) 7.7 %; HCT - HEMATOCRIT 35.7 % (37.0-47.0); HGB - HEMOGLOBIN 11.1 g/dL (12.0-16.0); LYMPHOCYTES # (AUTO) 1.8 10^3/uL (1.5-3.5); LYMPHOCYTES % (AUTO) 38.3 %; MEAN CORPUSCULAR HEMOGLOBIN 28.6 pg (27.0-31.0); MEAN CORPUSCULAR HGB CONC 31.1 g/dL (32.0-36.0); MEAN PLATELET VOLUME 11.1 fL (7.9-10.8); MONOCYTES # (AUTO) 0.5 10^3/uL (0.0-1.0); MONOCYTES % (AUTO) 10.2 %; NEUTROPHILS # (AUTO) 2.1 10^3/uL (1.5-6.6); NEUTROPHILS % (AUTO) 42.6 %; PLT - PLATELET COUNT 224 10^3/uL (130-450); RED BLOOD COUNT 3.88 10^6/uL (4.20-5.40); RED CELL DISTRIBUTION WIDTH 15.1 % (12.0-15.0); WHITE BLOOD COUNT 4.8 x10^3/uL (4.8-10.8)
== END 2021-11-20 07:41 | disposition home or self-care (01) ==
LOC: LAB.N 07:40
PROVIDERS: ATTEND Physician Assistant Medical
DX: D64.9 Anemia, unspecified (principal)
CPT/HCPCS: 36415; 85025

== ENCOUNTER 2022-06-25 08:07 | Outpatient (CLI) | payer MEDICARE ==
[2022-06-25 11:47] LABS: BASOPHILS # (AUTO) 0.1 10^3/uL (0.0-0.1); BASOPHILS % (AUTO) 1.3 %; EOSINOPHILS # (AUTO) 0.4 10^3/uL (0.0-0.7); EOSINOPHILS % (AUTO) 7.4 %; HCT - HEMATOCRIT 37.5 % (37.0-47.0); HGB - HEMOGLOBIN 11.2 g/dL (12.0-16.0); LYMPHOCYTES # (AUTO) 1.7 10^3/uL (1.5-3.5); LYMPHOCYTES % (AUTO) 36.6 %; MEAN CORPUSCULAR HEMOGLOBIN 29.1 pg (27.0-31.0); MEAN CORPUSCULAR HGB CONC 29.9 g/dL (32.0-36.0); MEAN CORPUSCULAR VOLUME 97.4 fL (81.0-99.0); MEAN PLATELET VOLUME 10.8 fL (7.9-10.8); MONOCYTES # (AUTO) 0.5 10^3/uL (0.0-1.0); MONOCYTES % (AUTO) 10.5 %; NEUTROPHILS # (AUTO) 2.1 10^3/uL (1.5-6.6); NEUTROPHILS % (AUTO) 44.2 %; PLT - PLATELET COUNT 248 10^3/uL (130-450); RED BLOOD COUNT 3.85 10^6/uL (4.20-5.40); RED CELL DISTRIBUTION WIDTH 14.5 % (12.0-15.0); WHITE BLOOD COUNT 4.8 x10^3/uL (4.8-10.8)
[2022-06-25 12:22] LABS: ALBUMIN/GLOBULIN RATIO 1.3 (1.0-2.2); ALKALINE PHOSPHATASE 77 IU/L (42-121); ALT ALANINE AMINOTRANSFERASE 18 IU/L (10-60); AST ASPARTATE AMINOTRANSFERASE 23 IU/L (10-42); BILIRUBIN,TOTAL 0.5 mg/dL (0.2-1.0); BUN - BLOOD UREA NITROGEN 16 mg/dL (6-20); CALCIUM 8.8 mg/dL (8.5-10.3); CARBON DIOXIDE - CO2 25 mmol/L (21-32); CHLORIDE 101 mmol/L (101-111); CHOL/HDL RATIO 3.9 (<4.4); CHOLESTEROL 167 mg/dL; GFR - MDRD 54 (>89); GLUCOSE 96 mg/dL (70-100); HDL CHOLESTEROL 43 mg/dL; LDL CHOLESTEROL,CALCULATED 79 mg/dL; LDL/HDL RATIO 1.8 (<4.4); POTASSIUM 3.8 mmol/L (3.5-5.0); SODIUM 136 mmol/L (135-145); TOTAL PROTEIN 7.2 g/dL (6.7-8.2); TRIGLYCERIDES 223 mg/dL; VLDL CHOLESTEROL 45 mg/dL
[2022-06-25 12:36] LABS: ESTIMATED AVERAGE GLUCOSE 126 mg/dL (70-100)
== END 2022-06-25 08:08 | disposition home or self-care (01) ==
LOC: LAB.N 08:07
PROVIDERS: ATTEND Physician Assistant Medical
DX: I10 Essential (primary) hypertension (principal); R73.03 Prediabetes; D64.9 Anemia, unspecified; E53.8 Deficiency of other specified B group vitamins
CPT/HCPCS: 36415; 80053; 80061; 82607; 83036; 83721; 85025

== ENCOUNTER 2022-10-13 12:35 | Outpatient (CLI) | payer MEDICARE ==
--- NOTE | 2022-10-13 14:30 | XRAY Report ---
PROCEDURE: Thoracic Spine 2 View INDICATIONS: THORACIC BACK PAIN TECHNIQUE: 3 views of the thoracic spine were acquired. COMPARISON: None. FINDINGS: Bones: No fractures or dislocations. No suspicious bony lesions. 12 pairs of ribs are noted, and a ppear intact where visualized. Rightward curvature of the thoracic spine with a Fitzpatrick angle of 7 degr ees. Kyphosis of the thoracic spine. Degenerative changes of the cervical spine. Soft tissues: No paravertebral stripe thickening. IMPRESSION: 1. Degenerative changes of the thoracic spine with rightward curvature. 2. Kyphosis of the thoracic spine. 3. Mild rightward curvature of the thoracic spine Reviewed by: Tod Yañez on 10/13/2022 2:28 PM PST Approved by: Tod Yañez on 10/13/2022 2:28 PM [facility] Station ID: [id number]
--- NOTE | 2022-10-13 14:32 | XRAY Report ---
PROCEDURE: Lumbar Spine 2 View INDICATIONS: LOW BACK PAIN TECHNIQUE: 2 views of the lumbar spine were acquired. COMPARISON: None. FINDINGS: Bones: 5 rfr-taj-aafhmzz vertebrae are present. There is leftward curvature of the thoracolumbar sp ine. Facet arthrosis in the lower lumbar spine. Grade 1 anterolisthesis of L5-S1. There is normal bon y alignment. No vertebral body compression fractures. No suspicious bony lesions. Soft tissues: Overlying bowel gas pattern is normal. No suspicious soft tissue calcifications. IMPRESSION: 1. Degenerative changes of the thoracic spine. 2. Facet arthrosis from L4 through S1. 3. Grade 1 anterolisthesis of L5-S1. Reviewed by: Tod Yañez on 10/13/2022 2:30 PM PST Approved by: Tod Yañez on 10/13/2022 2:30 PM PST Station ID: [id number]
== END 2022-10-13 12:36 | disposition home or self-care (01) ==
LOC: DI 12:35
PROVIDERS: ATTEND Nurse Practitioner
DX: M47.814 Spondylosis without myelopathy or radiculopathy, thoracic region (principal); M47.816 Spondylosis without myelopathy or radiculopathy, lumbar region; M47.817 Spondylosis without myelopathy or radiculopathy, lumbosacral region; M43.17 Spondylolisthesis, lumbosacral region

== ENCOUNTER 2022-11-18 15:33 | Outpatient (CLI) | payer MEDICARE ==
--- NOTE | 2022-11-19 07:08 | MRI Report ---
PROCEDURE: LUMBAR SPINE WO INDICATIONS: SPINAL STENOSIS TECHNIQUE: Noncontrast sagittal T1 spin echo and T2 fast echo, sagittal STIR, axial T1 and T2 fast spin echo thr ough the lumbar spine. In cases with scoliosis, additional coronal T2 fast spin echo may be performe d. COMPARISON: 04/05/2022. Correlation is also made with abdomen pelvis CT, 11/16/2022. FINDINGS: Image quality: Diagnostic. Alignment and Curvature: There is grade 1 anterolisthesis at the L5-S1 level. Bone Marrow: Marrow is of normal overall signal. No acute vertebral body compression fractures. Spinal Cord: Conus medullaris terminates at the L1 level. Visualized cord demonstrates normal signa l and size. Paraspinous Soft Tissues: No paravertebral masses. A few centimeters simple cyst can be seen at the superior pole of the left kidney. T12-L1: The disc height is well-preserved. There is loss of disc signal seen. No significant neural foraminal or central canal narrowing can be seen. L1-L2: Mild to moderate loss of disc height and disc signal can be seen. Mild disc bulge is seen, with a mild central disc protrusion. No significant neuroforaminal narrowing. No significant central canal narrowing is seen. No significant change compared to the prior examination. L2-L3: Mild loss of disc height and disc signal are seen. Mild disc bulge is seen, which is eccent nidhi to the left. Mild facet hypertrophy is seen. Mild bilateral neural foraminal narrowing is seen. Mild central canal narrowing is seen. These imaging findings are similar to the images of the valery or examination. L3-L4: The disc height is well-preserved. There is loss of disc signal seen. Moderate disc bulge i s seen at this level. A superimposed central disc protrusion is seen. Moderate facet hypertrophy i s seen. There is moderate left-sided and [id number] right-sided neuroforaminal narrowing. Moder ate central canal narrowing is seen. These imaging findings are similar to the images of the prior examination. L4-L5: The disc height is well-preserved. There is loss of disc signal seen. Moderate disc bulge i s seen at this level. A superimposed central disc protrusion is seen. At least moderate facet hypertr ophy is seen. There is at least moderate bilateral neuroforaminal narrowing seen. Compression is seen upon the exiting nerve roots. Moderate to severe central canal narrowing is seen. A degree of cent ral canal narrowing is slightly improved compared to the prior examination. L5-S1: The disc height is well-preserved. There is loss of disc signal seen. Mild disc bulge is se en. Moderate to prominent facet hypertrophy can be seen. At least moderate bilateral neuroforaminal n arrowing can be seen. Mild central canal narrowing is seen. These imaging findings are similar to t he images of the prior examination. 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 The degree of central canal narrowing at L4-L5 slightly improved compared to the prior. Otherwise, stable degenerative change. Reviewed by: Josue Lorenzana MD on 11/18/2022 4:34 PM [facility] Approved by: Josue Lorenzana MD on 11/18/2022 4:34 PM MOY Station ID: [id number]
== END 2022-11-18 15:34 | disposition home or self-care (01) ==
LOC: DI 15:33
PROVIDERS: ATTEND Physical Medicine & Rehabilitation
DX: M48.062 Spinal stenosis, lumbar region with neurogenic claudication (principal); M47.816 Spondylosis without myelopathy or radiculopathy, lumbar region

== ENCOUNTER 2023-01-07 15:12 | Outpatient (CLI) | payer MEDICARE ==
--- NOTE | 2023-01-07 15:36 | DEXA Report ---
PROCEDURE: Dexa Spine and/or Hip INDICATIONS: POST MENOPAUSAL TECHNIQUE: Dual energy x-ray absorptiometry (DXA) was performed on a Mover System. Regions measur ed are the AP Spine, femoral neck, and if needed forearm. COMPARISON: DEXA 12/17/2019 FINDINGS: Lumbar Spine: Bone Mineral Density 0.97 g/cm/cm,T score -1.7, compared to -2.3. Left Femoral Neck: Bone Mineral Density 0.762 g/cm/cm, T score -2.0, compared to -1.3. Left Hip: Bone Mineral Density 0.815 g/cm/cm,T score -1.5, compared to -1.0. (T score greater or equal to -1.0: NORMAL) (T score from -1.1 to -2.4: OSTEOPENIA) (T score less than or equal to -2.5 to: OSTEOPOROSIS) Impression: By WHO criteria, the patient has osteopenia most severe in the left femoral neck. There is been progr essive bone mineral density loss within the femoral neck and hip and mildly improved bone mineral den sity lumbar spine. Patients with diagnosis of osteoporosis or osteopenia should have regular bone mineral density assess ment. For those eligible for Medicare, routine testing is allowed once every 2 years. Testing frequ ency can be increased for patients who have rapidly progressing disease or for those who are receivin g medical therapy to restore bone mass. Reviewed by: Octavia Alvarado MD on 01/07/2023 3:35 PM PDT Approved by: Octavia Alvarado MD on 01/07/2023 3:35 PM PDT Station ID: [id number]
== END 2023-01-07 15:13 | disposition home or self-care (01) ==
LOC: DI 15:12
PROVIDERS: ATTEND Nurse Practitioner
DX: Z78.0 Asymptomatic menopausal state (principal); M85.88 Other specified disorders of bone density and structure, other site

== ENCOUNTER 2023-01-31 10:04 | Emergency (ER) | payer MEDICARE ==
--- NOTE | 2023-01-31 10:32 | ED Physician Documentation ---
PD HPI CHEST PAIN - Stated complaint Stated Complaint: SOA,RAPID PULSE RATE - Chief complaint Chief Complaint: Cardiac - History obtained from History obtained from: Patient - History of Present Illness Timing - onset: Today Timing - duration: Hours Timing - details: Abrupt onset, Now resolved Quality: Tightness, Aching Location: Left chest Radiation: No: Neck, Back, Abdominal Improved by: No: Rest Associated symptoms: Shortness of air. No: Nausea, Feeling faint / dizzy Similar symptoms before: Diagnosis (recurrent SVT episodes.) PD PAST MEDICAL HISTORY - Past Medical History Cardiovascular: Hypertension Musculoskeletal: Osteoarthritis - Past Surgical History Past Surgical History: Yes General: Cholecystectomy /[employer]: section HEENT: Tonsil/Adenoidectomy - Present Medications Home Medications: Ambulatory Orders Medication Instructions Recorded Confirmed Omeprazole 20 mg PO BID 09/08/14 01/31/23 Flecainide [Tambocar] 50 mg PO Q12H 01/31/23 01/31/23 Gabapentin [Neurontin] 600 mg PO TID 01/31/23 01/31/23 Hydralazine HCl 50 mg PO TID 01/31/23 01/31/23 Losartan [Cozaar] 50 mg PO BID 01/31/23 01/31/23 Meloxicam 15 mg PO DAILY 01/31/23 01/31/23 Metoprolol Tartrate [Lopressor] 75 mg PO BID 01/31/23 01/31/23 - Allergies Allergies/Adverse Reactions: Allergies Allergy/AdvReac Type Severity Reaction Status Date / Time amlodipine Allergy Edema Verified 01/31/23 10:09 cefazolin sodium * Allergy Unknown Verified 01/31/23 10:09 [From Ancef] codeine Allergy Unknown Verified 01/31/23 10:09 corn Allergy Unknown Verified 01/31/23 10:09 rice Allergy Unknown Verified 01/31/23 10:09 tramadol [From Ultram] Allergy Unknown Verified 01/31/23 10:09 compoud H Allergy Unknown Uncoded 10/16/22 11:15 - Social History Does the pt smoke?: No Smoking Status: Never smoker Does the pt drink ETOH?: No Does the pt have substance abuse?: No - POLST Patient has POLST: No Results - Vitals Vitals: Vital Signs - 24 hr 01/31/23 01/31/23 01/31/23 10:09 10:30 10:37 Temperature 37.2 C Heart Rate 97 93 78 Respiratory 22 20 11 L Rate Blood Pressure 191/98 H 186/95 H 164/87 H O2 Saturation 99 100 97 01/31/23 01/31/23 12:19 12:49 Temperature 37.0 C Heart Rate 54 L 60 Respiratory 12 14 Rate Blood Pressure 159/83 H 130/80 O2 Saturation 97 98 Oxygen O2 Source Room air - Labs Labs: Laboratory Tests 01/31/23 11:44 Sodium 139 Potassium 4.0 Chloride 106 Carbon Dioxide 25 Anion Gap 8.0 BUN 16 Creatinine 0.9 Estimated GFR (MDRD) 60 L Glucose 119 H Calcium 8.7 Magnesium 2.0 Total Bilirubin 0.7 AST 25 ALT 21 Alkaline Phosphatase 79 Total Protein 7.4 Albumin 4.1 Globulin 3.3 Albumin/Globulin Ratio 1.2 Lipase 38 PD Medical Decision Making - ED course Complexity details: reviewed results, considered differential (she describes dyspnea, lightheaded, and fast heart rate 150 similar to prior SVT episodes. It lasted couple of hours, at which point she usually needs to be converted with Adenosine. However just on arriving to ER, it converted to regular. ), d/w patient ED course: she has company at her house, and had forgotten her usual meds yesterday. These things may have contributed to the episode being longer this morning, but she has infrequent SVT episodes anyway. Checked lytes to ensure good levels. She is feeling okay and no ectopy nor rhythm change while in ER. Departure - Departure Disposition: 01 Home, Self Care Clinical Impression: Paroxysmal SVT (supraventricular tachycardia) Condition: Stable Record reviewed to determine appropriate education?: Yes Comments: Stay well-hydrated. Continue with your usual medications. Your basic chemistry panel is normal here with normal basic electrolytes. Your heart rate and blood pressure are stable here. Return if needed. Discharge Date/Time: 01/31/23 12:49
[2023-01-31] MEDS ORDERED: ACETAMINOPHEN 325 MG TABLET PO STA (11:10)
[2023-01-31] MEDS ORDERED: METOPROLOL TARTRATE 50 MG TABLET PO STA (11:11)
[2023-01-31 12:01] LABS: ALBUMIN 4.1 g/dL (3.2-5.5); ALBUMIN/GLOBULIN RATIO 1.2 (1.0-2.2); BILIRUBIN,TOTAL 0.7 mg/dL (0.2-1.0); CALCIUM 8.7 mg/dL (8.5-10.3); CREATININE 0.9 mg/dL (0.4-1.0); TOTAL PROTEIN 7.4 g/dL (6.7-8.2)
[2023-01-31 12:54] VITALS: BP 130/80
== END 2023-01-31 12:49 | disposition home or self-care (01) ==
LOC: ED 10:04
DX: I47.1 Supraventricular tachycardia (principal); I10 Essential (primary) hypertension; Z79.899 Other long term (current) drug therapy
CPT/HCPCS: 36415; 80053; 83690; 83735; 93005; 99283; 99284; A9270

== ENCOUNTER 2023-06-28 10:56 | Outpatient (CLI) | payer MEDICARE ==
[2023-06-28 11:08] LABS: BASOPHILS # (AUTO) 0.1 10^3/uL (0.0-0.1); BASOPHILS % (AUTO) 1.1 %; EOSINOPHILS # (AUTO) 0.3 10^3/uL (0.0-0.7); EOSINOPHILS % (AUTO) 6.8 %; LYMPHOCYTES # (AUTO) 1.4 10^3/uL (1.5-3.5); LYMPHOCYTES % (AUTO) 29.7 %; MEAN CORPUSCULAR HEMOGLOBIN 29.1 pg (27.0-31.0); MEAN CORPUSCULAR HGB CONC 30.8 g/dL (32.0-36.0); MEAN CORPUSCULAR VOLUME 94.7 fL (81.0-99.0); MEAN PLATELET VOLUME 9.3 fL (7.9-10.8); MONOCYTES # (AUTO) 0.6 10^3/uL (0.0-1.0); MONOCYTES % (AUTO) 11.7 %; NEUTROPHILS # (AUTO) 2.4 10^3/uL (1.5-6.6); NEUTROPHILS % (AUTO) 50.5 %; PLT - PLATELET COUNT 231 10^3/uL (130-450); RED BLOOD COUNT 4.12 10^6/uL (4.20-5.40); WHITE BLOOD COUNT 4.7 x10^3/uL (4.8-10.8)
[2023-06-28 11:14] LABS: BILIRUBIN,URINE NEGATIVE (NEGATIVE); GLUCOSE, URINE (UA) NEGATIVE (NEGATIVE); KETONES,URINE (UA) NEGATIVE (NEGATIVE); LEUKOCYTE ESTERASE, URINE SMALL (NEGATIVE); NITRITE,URINE NEGATIVE (NEGATIVE); OCCULT BLOOD,URINE SMALL (NEGATIVE); PROTEIN,URINE NEGATIVE (NEGATIVE); UROBILINOGEN,URINE 0.2 (NORMAL) E.U./dL (NORMAL)
[2023-06-28 11:23] LABS: CALCIUM 9.2 mg/dL (8.5-10.3)
[2023-06-28 11:40] LABS: BACTERIA,URINE Rare /HPF (None Seen); CLARITY,URINE CLEAR (CLEAR); RBC,URINE 0-5 /HPF (0-5); SQUAMOUS EPITHELIAL CELL,UR FEW Squamous (<= Few); WBC,URINE 0-3 /HPF (0-5)
[2023-06-28 12:54] LABS: ESTIMATED AVERAGE GLUCOSE 120 mg/dL (70-100); HEMOGLOBIN A1c% 5.8 % (4.27-6.07)
== END 2023-06-28 10:57 | disposition home or self-care (01) ==
LOC: LAB 10:56
PROVIDERS: ATTEND Orthopaedic Surgery
DX: Z01.818 Encounter for other preprocedural examination (principal); R73.9 Hyperglycemia, unspecified; N39.0 Urinary tract infection, site not specified
CPT/HCPCS: 36415; 80048; 81001; 83036; 85025; 87077; 87086; 93005

== ENCOUNTER 2023-11-01 09:20 | Outpatient (CLI) | payer MEDICARE ==
[2023-11-01 12:09] LABS: BASOPHILS # (AUTO) 0.1 10^3/uL (0.0-0.1); BASOPHILS % (AUTO) 0.9 %; EOSINOPHILS # (AUTO) 0.3 10^3/uL (0.0-0.7); EOSINOPHILS % (AUTO) 5.6 %; HCT - HEMATOCRIT 38.4 % (37.0-47.0); HGB - HEMOGLOBIN 11.8 g/dL (12.0-16.0); LYMPHOCYTES # (AUTO) 1.6 10^3/uL (1.5-3.5); LYMPHOCYTES % (AUTO) 28.6 %; MEAN CORPUSCULAR HEMOGLOBIN 29.1 pg (27.0-31.0); MEAN CORPUSCULAR HGB CONC 30.7 g/dL (32.0-36.0); MEAN CORPUSCULAR VOLUME 94.6 fL (81.0-99.0); MEAN PLATELET VOLUME 11.3 fL (7.9-10.8); MONOCYTES # (AUTO) 0.6 10^3/uL (0.0-1.0); MONOCYTES % (AUTO) 10.1 %; NEUTROPHILS % (AUTO) 54.6 %; PLT - PLATELET COUNT 221 10^3/uL (130-450); RED BLOOD COUNT 4.06 10^6/uL (4.20-5.40); RED CELL DISTRIBUTION WIDTH 13.6 % (12.0-15.0); WHITE BLOOD COUNT 5.5 x10^3/uL (4.8-10.8)
[2023-11-01 12:40] LABS: ALBUMIN 4.2 g/dL (3.2-5.5); ALBUMIN/GLOBULIN RATIO 1.6 (1.0-2.2); ALKALINE PHOSPHATASE 70 IU/L (42-121); ALT ALANINE AMINOTRANSFERASE 15 IU/L (10-60); AST ASPARTATE AMINOTRANSFERASE 19 IU/L (10-42); BILIRUBIN,TOTAL 0.6 mg/dL (0.2-1.0); BUN - BLOOD UREA NITROGEN 20 mg/dL (6-20); CALCIUM 9.5 mg/dL (8.5-10.3); CARBON DIOXIDE - CO2 30 mmol/L (21-32); CHLORIDE 106 mmol/L (101-111); CHOL/HDL RATIO 3.2 (<4.4); CHOLESTEROL 173 mg/dL; GFR - MDRD 53 (>89); GLUCOSE 101 mg/dL (74-104); HDL CHOLESTEROL 54 mg/dL; LDL CHOLESTEROL,CALCULATED 82 mg/dL; LDL/HDL RATIO 1.5 (<4.4); SODIUM 140 mmol/L (135-145); TOTAL PROTEIN 6.8 g/dL (6.4-8.9); TRIGLYCERIDES 184 mg/dL (48-352); VLDL CHOLESTEROL 37 mg/dL
== END 2023-11-01 09:21 | disposition home or self-care (01) ==
LOC: LAB.N 09:20
PROVIDERS: ATTEND Physician Assistant Medical
DX: E78.5 Hyperlipidemia, unspecified (principal); D64.9 Anemia, unspecified
CPT/HCPCS: 36415; 80053; 80061; 83721; 85025

== ENCOUNTER 2023-11-17 12:22 | Outpatient (CLI) | payer MEDICARE ==
[2023-11-17 12:48] LABS: CALCIUM 9.2 mg/dL (8.5-10.3); POTASSIUM 4.2 mmol/L (3.5-4.5)
== END 2023-11-17 12:23 | disposition home or self-care (01) ==
LOC: LAB 12:22
PROVIDERS: ATTEND Physician Assistant Medical
DX: I10 Essential (primary) hypertension (principal)
CPT/HCPCS: 36415; 80048

== ENCOUNTER 2024-02-21 13:50 | Outpatient (CLI) | payer MEDICARE ==
[2024-02-21 14:26] LABS: CALCIUM 9.2 mg/dL (8.5-10.3); CREATININE 1.5 mg/dL (0.6-1.3); POTASSIUM 4.4 mmol/L (3.5-4.5)
== END 2024-02-21 13:51 | disposition home or self-care (01) ==
LOC: LAB 13:50
PROVIDERS: ATTEND Physician Assistant Medical
DX: I10 Essential (primary) hypertension (principal)
CPT/HCPCS: 36415; 80048

== ENCOUNTER 2024-04-05 13:16 | Outpatient (CLI) | payer MEDICARE ==
[2024-04-05 13:43] LABS: CREATININE 1.2 mg/dL (0.6-1.3)
== END 2024-04-05 13:17 | disposition home or self-care (01) ==
LOC: LAB 13:16
PROVIDERS: ATTEND Physician Assistant Medical
DX: I10 Essential (primary) hypertension (principal)
CPT/HCPCS: 36415; 80048